=== PATIENT | female | born 1975 | race African-American/Black ===

== ENCOUNTER 2024-03-28 11:45 | Observation (INO) ==
--- NOTE | 2024-02-23 13:46 | PAT Medication Instructions ---
Medication Instructions Date of Service February 23, 2024 Home Medications B-complex with vitamin C 1 cap PO DAILY albuterol sulfate 90 mcg/actuation aerosol inhaler 2 puff inhalation QID PRN ammonium lactate 5 % topical cream 1 applic topical UD PRN aripiprazole 20 mg tablet 20 mg PO QAM budesonide-formoterol HFA 160 mcg-4.5 mcg/actuation aerosol inhaler 2 puff inhalation BID carbidopa 25 mg-levodopa 100 mg tablet 2 tab PO QID celecoxib 100 mg capsule (Celebrex) 100 mg PO BID PRN divalproex 500 mg tablet,delayed release (Depakote) 500 mg PO HS famotidine 10 mg tablet 10 mg PO QAM ferrous sulfate 325 mg (65 mg iron) tablet 325 mg PO QAM gabapentin 300 mg tablet 900 mg PO TID hydroxyzine HCl 25 mg tablet 25 mg PO TID levothyroxine 125 mcg tablet 125 mcg PO QAM methenamine hippurate 1 gram tablet 1 g PO BID montelukast 10 mg tablet (Singulair) 10 mg PO HS omeprazole 40 mg capsule,delayed release 40 mg PO QAM tizanidine 2 mg capsule 2 mg PO Q8H PRN topiramate 50 mg tablet (Topamax) 25 mg PO QAM tramadol 50 mg tablet 50 mg PO BID PRN vibegron 75 mg tablet (Gemtesa) 75 mg PO QAM ASK your surgeon for instructions celecoxib 100 mg capsule (Celebrex) 100 mg PO BID PRN STOP taking 24 hours before surgery ammonium lactate 5 % topical cream 1 applic topical UD PRN DO NOT take the morning of surgery B-complex with vitamin C 1 cap PO DAILY ferrous sulfate 325 mg (65 mg iron) tablet 325 mg PO QAM vibegron 75 mg tablet (Gemtesa) 75 mg PO QAM Take morning of surgery With a small sip of water, OTHERWISE NOTHING TO EAT OR DRINK AFTER MIDNIGHT: albuterol sulfate 90 mcg/actuation aerosol inhaler 2 puff inhalation QID PRN(use if needed; please bring with you to hospital day of surgery if possible) aripiprazole 20 mg tablet 20 mg PO QAM budesonide-formoterol HFA 160 mcg-4.5 mcg/actuation aerosol inhaler 2 puff inhalation BID carbidopa 25 mg-levodopa 100 mg tablet 2 tab PO QID famotidine 10 mg tablet 10 mg PO QAM gabapentin 300 mg tablet 900 mg PO TID hydroxyzine HCl 25 mg tablet 25 mg PO TID levothyroxine 125 mcg tablet 125 mcg PO QAM methenamine hippurate 1 gram tablet 1 g PO BID omeprazole 40 mg capsule,delayed release 40 mg PO QAM tizanidine 2 mg capsule 2 mg PO Q8H PRN(if needed) topiramate 50 mg tablet (Topamax) 25 mg PO QAM tramadol 50 mg tablet 50 mg PO BID PRN(if needed) Take evening before surgery albuterol sulfate 90 mcg/actuation aerosol inhaler 2 puff inhalation QID PRN(if needed) budesonide-formoterol HFA 160 mcg-4.5 mcg/actuation aerosol inhaler 2 puff inhalation BID carbidopa 25 mg-levodopa 100 mg tablet 2 tab PO QID divalproex 500 mg tablet,delayed release (Depakote) 500 mg PO HS gabapentin 300 mg tablet 900 mg PO TID hydroxyzine HCl 25 mg tablet 25 mg PO TID methenamine hippurate 1 gram tablet 1 g PO BID montelukast 10 mg tablet (Singulair) 10 mg PO HS tizanidine 2 mg capsule 2 mg PO Q8H PRN(if needed) tramadol 50 mg tablet 50 mg PO BID PRN(if needed) Other Notes If you have any questions please call us at [phone] or [phone] or [phone] or [phone]
--- NOTE | 2024-02-29 10:49 | Anesthesiology Consultation ---
Date of Service February 29, 2024 Assessment & Plan (1) Encounter for pre-operative examination: - Hx Gastroparesis: Pt reports had been NPO after 9pm for EGD and found to still have food in stomach, reports she normally goes NPO after 5 pm for surgeries due to this. Patient indicates that she will be NPO after 5pm night before for upcoming surgery given gastroparesis/past NPO experience. - Infectious disease screening: Per assessment on 02/29/24- No known recent infectious disease contacts or current infectious disease symptoms. - Outpatient joint assessment: Pt currently scheduled for inpatient pathway. If surgeon requests review for outpatient joint pathway, patient is not recommended candidate for outpatient joint program from anesthesia standpoint based on available information. - Patient acceptable risk for surgery pending surgeon-ordered PCP preop evaluation ([facility], appt 03/15). Chart Review Chart Review: Patient seen in Pre Admission Testing Teaching & Discussion Pre-Anesthesia Teaching/Discussion Notes: Instructed NPO after midnight before surgery,except medications with 15 cc of water. Medication instructions provided according to the PAT guidelines. History Surgery Operation Date: 03/28/24 07:15 Proposed Procedures p Right Reverse Total Shoulder Arthroplasty - Octavio Bianchi MD Height/Weight Height: 5 ft 5 in Weight: 103.1 kg Allergies Allergy/AdvReac Type Severity Reaction Status Date / Time No Known Allergies Allergy Verified 02/22/24 10:34 Medications Home Medications Medication Instructions Recorded Confirmed Last Taken B-complex with vitamin C 1 cap PO DAILY 02/22/24 02/22/24 Unknown albuterol sulfate 90 mcg/actuation 2 puff inhalation QID PRN asthma 02/22/24 02/22/24 Unknown aerosol inhaler ammonium lactate 5 % topical cream 1 applic topical UD PRN feet 02/22/24 02/22/24 Unknown budesonide-formoterol HFA 160 2 puff inhalation BID 02/22/24 02/22/24 Unknown mcg-4.5 mcg/actuation aerosol inhaler carbidopa 25 mg-levodopa 100 mg 2 tab PO QID 02/22/24 02/22/24 Unknown tablet celecoxib 100 mg capsule (Celebrex) 100 mg PO BID PRN Pain 02/22/24 02/22/24 Unknown divalproex 500 mg tablet,delayed 500 mg PO HS 02/22/24 02/22/24 Unknown release (Depakote) famotidine 10 mg tablet 10 mg PO QAM 02/22/24 02/22/24 Unknown ferrous sulfate 325 mg (65 mg 325 mg PO QAM 02/22/24 02/22/24 Unknown iron) tablet gabapentin 300 mg tablet 900 mg PO TID 02/22/24 02/22/24 Unknown hydroxyzine HCl 25 mg tablet 25 mg PO TID 02/22/24 02/22/24 Unknown levothyroxine 125 mcg tablet 125 mcg PO QAM 02/22/24 02/22/24 Unknown methenamine hippurate 1 gram tablet 1 g PO BID 02/22/24 02/22/24 Unknown montelukast 10 mg tablet 10 mg PO HS 02/22/24 02/22/24 Unknown (Singulair) omeprazole 40 mg capsule,delayed 40 mg PO QAM 02/22/24 02/22/24 Unknown release tizanidine 2 mg capsule 2 mg PO Q8H PRN muscle spasms 02/22/24 02/22/24 Unknown topiramate 50 mg tablet (Topamax) 25 mg PO QAM 02/22/24 02/22/24 Unknown tramadol 50 mg tablet 50 mg PO BID PRN Pain 02/22/24 02/22/24 Unknown vibegron 75 mg tablet (Gemtesa) 75 mg PO QAM 02/22/24 02/22/24 Unknown aripiprazole 10 mg tablet (Abilify) 10 mg PO DAILY 02/29/24 02/29/24 Unknown quetiapine 25 mg tablet (Seroquel) 25 mg PO HS 02/29/24 02/29/24 Unknown Past Medical History Medical History Arthritis Asthma Bipolar affective disorder Chronic pain Diffuse r/t arthritis and previous surgeries COPD (chronic obstructive pulmonary disease) Depression with anxiety Gastroparesis Pt reports had been NPO after 9pm for EGD and found to still have food in stomach, reports she normally goes NPO after 5 pm for surgeries due to this GERD (gastroesophageal reflux disease) History of deviated nasal septum History of seizure Single episode (2011) HLD (hyperlipidemia) HTN (hypertension) Hypothyroidism Parkinsons Seasonal allergies Urinary incontinence Exercise / Class Metabolic Activity III < 4 Walking/Shop/Light housework (one FS: No CP, mild SOB) Past Surgical History Surgical History History of arthroplasty of right shoulder x4 - rotator cuff repairs History of carpal tunnel release of both wrists Right x3, Left x3 History of decompression of both ulnar nerves History of esophagogastroduodenoscopy (EGD) History of nasal septoplasty History of total bilateral knee replacement Hx of colonoscopy Past Anesthesia History No Hx of Anesthesia Complications and No Family Hx of Anesthesia Complications History of PONV No Hx of PONV and No Hx of Motion Sickness Social History Smoking Status: Former smoker Smoking cigarettes per day: Quit cigs use 1.5 months ago, vapes daily (advised) Do You Dip or Chew Tobacco: No Hx Alcohol Use: No Hx Substance Use: No substance use type: does not use Review of Systems Patient denies chest pain, shortness of breath, fever, chills, cough, wheezing, palpitations. Physical Exam Vital Signs BP 112/76 P 78 TEMP 98.3 SP02 97%RA RESP 16 Physical Mildly decreased cervical extension range of motion. Full TMJ range of motion. TMD > 3.5 finger breaths Mallampati Score III Dentition: no lower teeth, several upper missing sides/molars Lungs: clear throughout to auscultation Cardiac: regular rate and rhythm, no murmurs noted Spine: normal Carotid arteries: negative bruit Extremities: no LE edema Lab Results Anesthesia Preop Results Results Anesthesia Widget: WBC 6.08 K/ul (4.8-10.8) 02/29/24 Hgb 12.5 g/dl (12.0-16.0) 02/29/24 Hct 37.8 % (37.0-47.0) 02/29/24 Plt 308 K/uL (130-400) 02/29/24 Na 141 mmol/L (136-145) 02/29/24 K 3.7 mmol/L (3.5-5.1) 02/29/24 Cl 108 mmol/L (98-107) H 02/29/24 CO2 26 mmol/L (21-32) 02/29/24 BUN 23 mg/dl (6-23) 02/29/24 Creat 0.69 mg/dl (0.6-1.2) 02/29/24 Glucose Level 100 mg/dl (70-99(Fasting)) H 02/29/24 PT 10.7 Seconds (9.0-12.0) 02/29/24 PTT 33 Seconds (21-31) H 02/29/24 INR 1.0 (0.9-1.1) 02/29/24 Urine Color Yellow 02/29/24 Urine Appearance Clear (Clear) 02/29/24 Urine pH 5.5 (4.5-7.5) 02/29/24 Urine Specific Slater 1.029 (1.000-1.030) 02/29/24 Urine Protein Trace (Negative) H 02/29/24 Urine Glucose (UA) Negative (Negative) 02/29/24 Urine Ketones Trace (Negative) H 02/29/24 Urine Blood Negative (Negative) 02/29/24 Urine Nitrite Negative (Negative) 02/29/24 Urine Bilirubin Negative (Negative) 02/29/24 Urine Urobilinogen Negative (Negative) 02/29/24 Urine Leukocyte Esterase Negative (Negative) 02/29/24 Urine WBC (Auto) 0-5 /hpf (0-5) 02/29/24 Urine RBC (Auto) >20 /hpf (0-2) H 02/29/24 Urine Hyaline Casts (Auto) 0-2 /lpf (0-2) 02/29/24 Urine Epithelial Cells (Auto) 6-10 /hpf (0-2) H 02/29/24 Urine Bacteria (Auto) None Seen (None Seen) 02/29/24 Blood Type O Positive 02/29/24 Antibody Screen NEGATIVE 02/29/24 Testing Electrocardiogram Date: 02/29/24 NSR at 70bpm. Rightward axis. Chest X-Ray Date: 02/29/24 FINDINGS: The lungs are clear. Cardiomediastinal silhouette is within normal limits. No acute osseous abnormalities. No pleural effusion or pneumothorax. IMPRESSION: No acute cardiopulmonary findings.
[~2024-03-28 11:45] MED LIST: BUPIVACAINE 0.5 % 5 MG/1 ML PF 10ML VIAL ONE; DEXAMETHASONE SOD INJ 4 MG/ML VIAL ONE; GLYCOPYRROLATE 0.2 MG/ML VIAL ONE; LIDOCAINE 2% 2 ML VIAL/AMP(20MG/ML) INFIL ONE; MIDAZOLAM HCL 1 MG/ML 2ML VIAL ONE; ONDANSETRON INJ 2 MG/ML 2 ML VIAL ONE; PROPOFOL IV EMULSION 10 MG/ML 20 ML VIAL IV ONE; ROCURONIUM BROMIDE 10 MG/ML 5 ML VIAL IV ONE; fentaNYL citrate PF 100 MCG/2 ML VIAL ONE
--- NOTE | 2024-03-28 12:12 | History & Physical Report ---
Date of Service March 28, 2024 Assessment & Plan (1) Rotator cuff tear arthropathy of right shoulder: Plan: [place] stage IV rotator cuff arthropathy failed rotator cuff repair right shoulder. Patient had adverse reaction to Celestone injection and had physical therapy without improvement. Patient cannot reach arm overhead with essentially pseudoparalysis. Patient's had 4 surgeries on her shoulder at this point in time and she lives a sedentary lifestyle so despite her age best option is reverse shoulder replacement right shoulder. (2) History of failed repair of rotator cuff: History of Present Illness Chief Complaint: Chronic right shoulder pain Primary Care Provider: NO PCP 49-year-old female with chronic right shoulder pain multiple right shoulder surgeries failed rotator cuff repair now with rotator cuff arthropathy. Patient denies headaches, sweats, fevers, chills, double vision, blurred vision, cough, sore throat, dysphagia, chest pain, sob at rest, wheezing, n/v/d/c, urinary symptoms. ROS positive for COPD, asthma, sleep apnea, bipolar disorder, numbness of the hands, Parkinson's, shortness of breath with activity, arthritis spine multiple areas, acid reflux. Allergies Allergy/AdvReac Type Severity Reaction Status Date / Time No Known Allergies Allergy Verified 03/08/24 15:05 Home Medications Medication Instructions Recorded Confirmed Type B-complex with vitamin C 1 cap PO DAILY 02/22/24 02/22/24 History albuterol sulfate 90 mcg/actuation 2 puff inhalation QID PRN asthma 02/22/24 02/22/24 History aerosol inhaler ammonium lactate 5 % topical cream 1 applic topical UD PRN feet 02/22/24 02/22/24 History budesonide-formoterol HFA 160 2 puff inhalation BID 02/22/24 02/22/24 History mcg-4.5 mcg/actuation aerosol inhaler carbidopa 25 mg-levodopa 100 mg 2 tab PO QID 02/22/24 02/22/24 History tablet celecoxib 100 mg capsule (Celebrex) 100 mg PO BID PRN Pain 02/22/24 02/22/24 History divalproex 500 mg tablet,delayed 500 mg PO HS 02/22/24 02/22/24 History release (Depakote) famotidine 10 mg tablet 10 mg PO QAM 02/22/24 02/22/24 History ferrous sulfate 325 mg (65 mg 325 mg PO QAM 02/22/24 02/22/24 History iron) tablet gabapentin 300 mg tablet 900 mg PO TID 02/22/24 02/22/24 History hydroxyzine HCl 25 mg tablet 25 mg PO TID 02/22/24 02/22/24 History levothyroxine 125 mcg tablet 125 mcg PO QAM 02/22/24 02/22/24 History methenamine hippurate 1 gram tablet 1 g PO BID 02/22/24 02/22/24 History montelukast 10 mg tablet 10 mg PO HS 02/22/24 02/22/24 History (Singulair) omeprazole 40 mg capsule,delayed 40 mg PO QAM 02/22/24 02/22/24 History release tizanidine 2 mg capsule 2 mg PO Q8H PRN muscle spasms 02/22/24 02/22/24 History topiramate 50 mg tablet (Topamax) 25 mg PO QAM 02/22/24 02/22/24 History tramadol 50 mg tablet 50 mg PO BID PRN Pain 02/22/24 02/22/24 History vibegron 75 mg tablet (Gemtesa) 75 mg PO QAM 02/22/24 02/22/24 History aripiprazole 10 mg tablet (Abilify) 10 mg PO DAILY 02/29/24 02/29/24 History quetiapine 25 mg tablet (Seroquel) 25 mg PO HS 02/29/24 02/29/24 History Past Med/Surg History Problem List (Updated 03/28/24 @ 12:10 by Octavio Bianchi MD) History of failed repair of rotator cuff Rotator cuff tear arthropathy of right shoulder Lumbar radicular pain Chronic low back pain Encounter for pre-operative examination Medical History DERICK (obstructive sleep apnea) Per PCP records Gastroparesis Pt reports had been NPO after 9pm for EGD and found to still have food in stomach, reports she normally goes NPO after 5 pm for surgeries due to this Bipolar affective disorder Depression with anxiety Chronic pain Diffuse r/t arthritis and previous surgeries Seasonal allergies Urinary incontinence History of seizure Single episode (2011) GERD (gastroesophageal reflux disease) HTN (hypertension) HLD (hyperlipidemia) Arthritis Parkinsons COPD (chronic obstructive pulmonary disease) Asthma History of deviated nasal septum Hypothyroidism Surgical History History of esophagogastroduodenoscopy (EGD) Hx of colonoscopy History of arthroplasty of right shoulder x4 - rotator cuff repairs History of total bilateral knee replacement History of decompression of both ulnar nerves History of carpal tunnel release of both wrists Right x3, Left x3 History of nasal septoplasty Social History Smoking Status: Former smoker Tobacco Type: E-cigarettes / Vaping Cigarettes Per Day: Quit cigs use 1.5 months ago, vapes daily (advised); Second Hand Exposure: No; Do You Dip or Chew Tobacco: No; Tobacco Cessation Education Requested by Patient: No Hx Alcohol Use: No Hx Substance Use: No Preferred Language: Stateless Communication Ability: Effective Medical Office Secretary Required: No Beliefs That Will Affect Care: None Current Living Situation: Other Current Living Situation Comment: lives with friends Other Information That Helps Us Care for You: No Feels Safe at Home: Yes Safety Concerns: Feels Safe At This Time Assistive Devices: Cane, Denture - Upper, Denture - Lower and Glasses Review of Systems All systems reviewed & are unremarkable except as noted in HPI & below Physical Exam Constitutional: WD/WN, vitals as above Respiratory: normal respiratory effort; no respiratory distress Cardiovascular: Rate/Rhythm: regular rate and regular rhythm Musculoskeletal: Right shoulder exam demonstrates abnormal rhythm anterior saber and arthroscopic scars with anterior and lateral subacromial tenderness with positive Patricia and Neer impingement signs with active and passive painful range of motion. Active flexion 80 degrees with passive flexion 170 degrees active abduction 80 degrees passive abduction 90 degrees. 4+/5 external rotation strength 4-/5 abduction strength normal internal rotation strength. Distal circulation sensorimotor exam intact. Skin: no rashes, warm and dry Neurologic: normal touch/pain/proprioception Psychiatric: A+Ox3, euthymic affect Results & Data Diagnostic Findings [place] stage IV rotator cuff arthropathy radiographically right shoulder.
--- NOTE | 2024-03-28 12:30 | History & Physical Bridge Note ---
Date of Service March 28, 2024 History & Physical Bridge Note I have examined the patient, reviewed the History & Physical and in the interval since the performance of the History & Physical I have noted the following changes of clinical significance: no changes noted
[2024-03-28] MEDS: LACTATED RINGER'S 1,000 ML IV SCH (12:44)
[2024-03-28] MEDS: CeleBREX 200 MG CAP PO SCH ×2 (12:45→21:40)
[2024-03-28] MEDS: FAMOTIDINE 20 MG TAB PO SCH (12:45)
[2024-03-28] MEDS: dexAMETHasone**PF** 10 MG/ML VIAL IV SCH (12:45)
[2024-03-28] MEDS: METOCLOPRAMIDE HCL 10 MG TABLET PO SCH (12:45)
[2024-03-28] MEDS: ACETAMINOPHEN 500 MG TAB PO SCH ×2 (12:45→20:28)
[2024-03-28] MEDS: GABAPENTIN 900 MG DOSE PO SCH (12:46)
[2024-03-28] MEDS ORDERED: LABETALOL HCL IV 5 MG/ML 20ML IV PRN (12:54)
[2024-03-28] MEDS ORDERED: FLUMAZENIL 0.1 MG/1 ML 10 ML VIAL IV PRN (12:54)
[2024-03-28] MEDS ORDERED: PROMETHAZINE HCL 6.25 MG in SODIUM CHLORIDE 0.9% 50 ML IV PRN (12:54)
[2024-03-28] MEDS ORDERED: ePHEDrine sulfate 50 MG/ML AMP IV PRN (12:54)
[2024-03-28] MEDS ORDERED: ONDANSETRON INJ 2 MG/ML 2 ML VIAL IV PRN ×2 (12:54→18:16)
[2024-03-28] MEDS ORDERED: fentaNYL citrate PF 100 MCG/2 ML VIAL IV PRN (12:54)
[2024-03-28] MEDS ORDERED: HYDROmorphone INJ 1 MG/ML SYRINGE IV PRN (12:54)
[2024-03-28] MEDS ORDERED: ATROPINE SULFATE 0.1 MG/ML 10ML SYR IV PRN (12:54)
[2024-03-28] MEDS ORDERED: NALOXONE HCL 0.4 MG/1 ML VIAL/CARP IV PRN ×2 (12:54→18:16)
[2024-03-28] MEDS: LR 60ML/HR IV SCH (12:55)
[2024-03-28] MEDS: TRANEXAMIC ACID 1,000 MG **IV Pre-op IV SCH (14:05)
[2024-03-28] MEDS: ceFAZolin 2000MG 2,000 MG/15 ML SYR IV SCH ×2 (14:21→23:37)
[2024-03-28] MEDS: TRANEXAMIC ACID 1,000 MG **IV Intra-op IV SCH (16:39)
[2024-03-28] MEDS ORDERED: fentaNYL citrate PF 100 MCG/2 ML VIAL ONE (16:50)
[2024-03-28] MEDS ORDERED: SUGAMMADEX SODIUM 200 MG/2 ML VIAL IV ONE (16:51)
--- NOTE | 2024-03-28 17:12 | Operative Report ---
Post Operative Report Pre & Post Diagnosis Operation Date: 03/28/24 13:30 Pre-Op Diagnosis: Right Shoulder Rotator Cuff Arthropathy, failed rotator cuff repairs Post-Op Diagnosis: Right Shoulder Rotator Cuff Arthropathy, failed rotator cuff repairs with retained suture anchors and suture material. I identified the patient and participated in the time-out.: Yes Procedure Operation Date: 03/28/24 13:30 Actual Procedures p Right Reverse Total Shoulder Arthroplasty(Right), biceps tenodesis, excisional debridement multiple suture anchors and suture material and rotator cuff tissue and biceps tendon tissue- Octavio Bianchi MD Surgeon Octavio Bianchi MD Deportation Officer Oscar MARQUEZ Estimated Blood Loss 300 Findings Consistent with Post-Op Diagnosis Specimens Humeral head Drains 2 Hemovac Anesthesia Type General Regional Complications none Disposition Disposition: Recovery Room Indications 49-year-old female with [place] stage IV rotator cuff arthropathy status post 4 prior shoulder surgeries with failed rotator cuff repair. [id number] glenohumeral joint Description of Procedure The patient was taken to the operating room and anesthetized under regional block and general anesthetic. The patient was positioned on the operating table in a 30 beach chair position with a towel roll under the medial border of the right scapula. The arm was draped free to be able to manipulate the shoulder as needed. The right upper extremity was prepped and draped in usual sterile fashion. Exam demonstrated good range of motion of the shoulder with crepitation. She has old widened scars saber scar and arthroscopic scars and obesity of the arm. An anterior deltopectoral approach was performed. A longitudinal incision was made in the deltopectoral interval. The skin was incised sharply. Subcutaneous flaps were elevated off the fascia. The cephalic vein was dissected out and retracted lateral with the deltoid. The clavipectoral fascia was divided at the lateral margin of the conjoined tendon and extended up to the CA ligament. The following findings were noted: At the level of the pectoralis tendon the biceps tendon was still intact and in the bicipital groove area there was tendinopathy of the biceps tendon but it was ruptured proximal to that. There was 1 suture and suture anchor in the bicipital groove area possibly from prior tenodesis or other procedure in that area. The subscapularis had partial tearing undersurface upper third with degenerative changes of subscapularis. There was some rotator interval supraspinatus tendon tissue most anterior attachment still some intact but then the remainder of the supraspinatus and anterior infraspinatus back to the teres minor was completely ruptured and retracted. There is retained suture material. No anchors were disrupted. There was suture material retracted medially with the rotator cuff tissue. There are spurs at the bicipital groove there are spurs of the lesser tuberosity inferior humeral head and greater tuberosity areas. There was moderate scarred bursitis over the rotator cuff tissue.. The upper centimeter of the pectoralis was released for inferior exposure. A self-retaining retractor was placed. In the area where the tendon looked the biceps tendon good at the level of the pectoralis tendon was tenodesed to the pectoralis tendon with #2 FiberWire. The proximal biceps was resected. The suture and suture material in the bicipital groove was resected and bicipital spurs were resected. The subscapular muscle fibers were split longitudinally at the level of the circumflex vessels. The circumflex vessels were identified and tied off with silk ties and divided laterally. A Kitner elevator was used to free up the inferior fibers of the subscapularis off of the capsule. The axillary nerve was identified with a tug test and protected with a blunt Benji retractor between the nerve and the capsule. The subscapularis tendon was then taken down off of the lesser tuberosity subperiosteally, a Vicryl traction suture was placed and a subperiosteal dissection was performed along the neck of the humerus as the arm was gradually externally rotated exposing the humeral head. The humeral head findings demonstrated areas of grade 4 arthritic change on the humeral head with articulating with the glenoid posterior superiorly. There were inferior humeral osteophytes from anterior to posterior.. retractors were readjusted and the inferior osteophytes were all resected using an artist chisel. A Molina elevator was used to assist in releasing the capsule of the neck of the humerus. The capsule was divided with Cerda scissors down to the glenoid released off the anterior glenoid and the rotator interval was released to meet the capsular release and a 360 release of the subscapularis was accomplished. A Fukuda retractor was placed into the joint retracting the humeral head posterior. Glenoid findings demonstrated grade 4 eburnated bone posterior superior glenoid with some relative wear of the posterior superior glenoid. There is still cartilage anterior and inferiorly. There was degenerative tearing the labrum and synovitis throughout the JARVIS labral area and underlying the rotator cuff tissue.. The labrum and inflamed synovial tissue was excised. An anterior-inferior and posterior inferior capsular release were performed with electrocautery and a Molina elevator on bone with the axillary nerve protected inferiorly by the retractor. Attention was then taken to the humeral preparation. The cutting guide was placed into the humeral head. It was positioned at 20 of retroversion. Oscillating saw was used to resect the humeral head giving the cut above the level of the posterior rotator cuff insertion site. This exposed multiple anchors in the humeral head which were removed with a rongeur as well as associated multiple sutures that were attached to the anchors. All visible anchors were removed. The humerus was then prepared for the stem. I for start with a canal finding broach . I used the ascend flex stem from [employer]. The sizing broaches were used followed by trial broaches up to a size 1B long which had the appropriate fit and fill. We templated a 2 but bone was very hard in the metaphyseal area and the size 1 was appropriate press-fit. The appropriate sized cut protector was placed. The humerus was then retracted posterior to the glenoid. The glenoid was sized for a 25 baseplate. The guide for the baseplate was positioned in a 10 inferior tilt and the central drill hole was made. The reamer for the 25 baseplate was used. The central drill was widened for the peg. The hydroxyapatite coated aequalis standard post 25 mm baseplate was impacted into position. The base plate was transfixed with superior and inferior locking screws and anterior and posterior compression screws with stable fixation. The fan reamer was used for the 36 millimeter glenoid sphere. After irrigation the 36 mm centered glenoid sphere was impacted onto the baseplate and the security screw was tightened. Attention was taken back to the humerus. The cut protector was removed and the +0 high offset humeral tray trial was assembled to the trial stem rotated appropriately to get bony coverage and then screwed in position. A trial reduction was performed. A +6/36 trial insert demonstrated good stability and no shuck. The trials were removed. 3 drill holes are made into the harder bone in the bicipital groove area and 3 #5 FiberWire sutures were placed transosseously. The canal was irrigated pulsatile lavage with saline. The final component was assembled. The final component was ascend Flex 1B Long stem assemble 2+ or high offset tray with a +6/36 reversed polyethylene insert. This was then impacted into the humerus with a tight press-fit. It was reduced to the glenoid sphere. Stability was verified. Subscapularis was repaired with the #5 FiberWire sutures using Luis Manuel-Rakesh suture technique. The pectoralis was repaired with #2 FiberWire [id number] sutures reinforcing the biceps tendon tenodesis. The arm was taken through a range of motion which demonstrated 150 degrees forward flexion 100 degrees abduction 80 degrees external rotation and internal rotation. The implant was stable through the range of motion tested. The wound was copiously irrigated. 2 Hemovac drains were placed. The deltopectoral interval was closed with [id number] #1 Vicryl sutures. The subcutaneous tissues were closed with 2-0 Vicryl sutures. The skin was closed with surgical hanna. It was noted that she had some generalized oozing of the tissues throughout the procedure and had more than typical bleeding throughout the procedure. Sterile dressings were applied and a shoulder immobilizer. Oscar MARQUEZ my physician speech language assistant acted as congressional assistant throughout the procedure .He performed functions including patient positioning, arm pos itioning, prepping and draping, soft tissue retraction, instrument management, suture management and performed the subcutaneous and skin closure and will participate in the postoperative care of the patient. I attest to the content of the Intraoperative Record and any orders documented therein. Any exceptions are noted below.
--- NOTE | 2024-03-28 17:58 | Anesthesiology Progress Note ---
Date of Service March 28, 2024 Anesthesia Post Procedure Vital Signs Vital Signs: Temp Pulse Resp BP BP Pulse Ox O2 Del Method 03/28/24 17:45 36.5 C 94 H 18 105/80 97 Oxymask 03/28/24 17:35 106 H 16 108/78 95 Oxymask 03/28/24 17:25 108 H 17 117/96 95 Oxymask 03/28/24 17:17 36.0 C L 90 16 140/70 98 Oxymask 03/28/24 12:32 36.9 C 70 20 116/85 97 Room Air O2 Flow Rate 03/28/24 17:45 2 03/28/24 17:35 4 03/28/24 17:25 6 03/28/24 17:17 10 03/28/24 12:32 Pain Intensity Right Shoulder: Pain Intensity: 7 Transfer of Care Handoff Completed per policy Notes Mental Status: alert / awake / arousable Patient Amnestic to Procedure: Yes Nausea / Vomiting: adequately controlled Pain: adequately controlled Airway Patency, RR, SpO2: stable & adequate BP & HR: stable & adequate Hydration State: stable & adequate Anesthetic Complications: no major complications apparent
--- NOTE | 2024-03-28 18:10 | XRay Report ---
Clinical history: Postoperative examination 2 views of the right shoulder are submitted for review. Findings: No fracture is seen. There is a right glenohumeral arthroplasty in expected position. There is no definite sign of infection or loosening. No other osseous abnormality is identified. Surgical drains are present as well as surgical skin hanna. There is right lung base atelectasis Impression: 1. New right shoulder replacement with surgical drains in place 2. Right lung base atelectasis Electronically signed by Drake Skelton 03-28-2024 6:10 PM
[2024-03-28] MEDS ORDERED: METOCLOPRAMIDE HCL INJ 5 MG/ML 2 ML VIAL IV PRN (18:16)
[2024-03-28] MEDS ORDERED: MAGNESIUM HYDROXIDE SUSP 30 ML UDC PO PRN (18:16)
[2024-03-28] MEDS ORDERED: ALBUTEROL HFA 8 GM INHALER INH PRN (18:16)
[2024-03-28] MEDS ORDERED: bisacodyL 10 MG SUPP PR PRN (18:16)
[2024-03-28] MEDS ORDERED: KETOROLAC TROMETHAMINE 15 MG/ML VIAL IV PRN (18:16)
[2024-03-28] MEDS ORDERED: tiZANidine HCL 4 MG TABLET PO PRN (18:16)
[2024-03-28] MEDS ORDERED: HYDROmorphone INJ 0.5 MG/0.5 ML SYR IV PRN (18:16)
[2024-03-28] MEDS ORDERED: diphenhydrAMINE Capsule 25 MG CAP PO PRN (18:16)
[2024-03-28] MEDS ORDERED: ALUMINUM/MAGNESIUM SUSP 30 ML UDC PO PRN (18:16)
[2024-03-28] MEDS: CARBIDOPA/LEVODOPA 25/100MG TAB PO SCH (18:41)
[2024-03-28] MEDS ORDERED: AMMONIUM LACTATE 12% LOTION 225 GM BTL EXT PRN ×2 (18:46→18:47)
--- OUTSIDE RECORDS SUMMARY | 2024-03-28 19:25 | External Medical Summary | Summary of Care ---
Author Name Unknown Organization [facility] Address [address] [place] [address] Phone [phone] Care Team Providers Care Center Mgr Name Role Phone Unavailable Primary Care Provider Unavailabl e Reason for Visit * Reason Comments eRx-Medication Refill Encounter Details Date Type Department Care Team ([facility] Contact Info) Description 03/20/2024 Refill Family [facility] [address] [place] [address] José Luis Lofton, DO [address] [place], [place] [id number] Environmental allergies; Recurrent UTI Allergies Active Allergy Reactions Criticality Noted Date Comments Lactose 10/25/2017 Other reaction(s): GI Intolerance Other reaction(s): GI UPSET Wound Dressing Adhesive Itching 12/20/2022 rash documented as of this encounter (statuses as of 03/22/2024) Medications Vitamin C 500 MG Oral Tablet (Ascorbic Acid) Take 1 Tablet by mouth in the morning and 1 Tablet before bedtime. 180 Tablet 3 03/15/20 23 Active Levothyroxine Sodium 112 MCG Oral Tablet (Levoxyl)Indicatio ns:Acquired hypothyroidism Take 1 Tablet by mouth in the morning. 90 Tablet 3 03/15/20 23 Active Fluticasone Propionate 50 MCG/ACT Nasal Suspension (Flonase)Indicatio ns:Allergic rhinitis, unspecified seasonality, unspecified trigger Administer 2 Sprays into each nostril in the morning. 16 g 5 03/17/20 23 Active Loratadine 10 MG Oral Tablet (Claritin)Indicati ons:Allergic rhinitis, unspecified seasonality, unspecified trigger Take 1 Tablet by mouth in the morning. 90 Tablet 1 03/17/20 23 Active Spironolactone 25 MG Oral Tablet (Aldactone) Take 1 Tablet by mouth in the morning. 90 Tablet 3 03/22/19 24 Active Diapers & SuppliesIndication s:Urinary incontinence, unspecified type Please dispense 5 adult diapers per day for patient. 150 Each 11 04/07/19 24 Active Ferrous Sulfate 325 (65 Fe) MG Oral Tablet (Feosol) Take 1 Tablet by mouth daily with breakfast. 90 Tablet 3 05/09/19 24 Active Montelukast Sodium 10 MG Oral Tablet (Singulair)Indicat ions:Environmental allergies Take 1 Tablet by mouth at bedtime. 90 Tablet 3 05/13/19 24 Active Budesonide-Formote rol Fumarate 160-4.5 MCG/ACT Inhalation Aerosol (Symbicort)Indicat ions:Chronic obstructive pulmonary disease, unspecified COPD type (HCC),Moderate persistent asthma, uncomplicated Inhale 2 Puffs by mouth in the morning and 2 Puffs before bedtime. 10.2 g 11 07/13/19 24 Active SUMAtriptan Succinate 100 MG Oral TabletIndications: Migraine without aura and without status migrainosus, not intractable take 1 tablet by mouth ONCE if needed for migraines every 3 TO 4 DAYS 10 Tablet 5 07/18/19 24 Active Diclofenac Sodium 1 % External Gel (Voltaren)Indicati ons:Acute pain of right shoulder Apply 2 g topically to affected area 4 times a day as needed for Pain. Apply to right shoulder 100 g 1 07/26/19 24 Active Ammonium Lactate 12 % External Lotion (Lac-Hydrin) APPLY TOPICALLY DAILY ON BOTH FEET DAILY 07/08/19 24 Active Ibuprofen 800 MG Oral Tablet (Motrin) Take 1 Tablet by mouth every 8 hours as needed. 07/21/19 24 Active Lidocaine-Prilocai ne 2.5-2.5 % External Cream (Emla) Apply to areas of pain, on left foot , every 4 hours as needed 07/24/19 24 Active Naloxone HCl 4 MG/0.1ML Nasal Liquid (Narcan Nasal) Administer 1 spray into 1 nostril for suspected opioid overdose. Seek immediate medical attention. [email or web address] 1 Each 3 07/28/19 24 Active Omeprazole 40 MG Oral Capsule Delayed Release (PriLOSEC) TAKE 1 CAPSULE BY MOUTH EVERY MORNING 90 Capsule 1 08/01/19 24 Active Pregabalin 100 MG Oral Capsule (Lyrica)Indication s:Spinal stenosis of lumbar region without neurogenic claudication Take 1 Capsule by mouth in the morning and 1 Capsule at noon and 1 Capsule before bedtime. 90 Capsule 2 08/02/19 24 Active oxyCODONE HCl 5 MG Oral Tablet (Oxy IR) Take 1 Tablet by mouth every 4 hours as needed for Pain, Severe. 15 Tablet 08/01/19 24 Active Additional Information Patient not taking.Reported on 08/26/2023 Albuterol Sulfate HFA 108 (90 Base) MCG/ACT Inhalation Aerosol Solution INHALE 2 PUFFS BY MOUTH EVERY 4 HOURS NEEDED FOR PAIN, CHEST OR SHORTNESS OF BREATH. 18 g 08/03/19 24 Active Cyclobenzaprine HCl 5 MG Oral Tablet (Flexeril)Indicati ons:Cervicalgia,Pa in in joint of left shoulder TAKE 1 TABLET BY MOUTH THREE TIMES A DAY NEEDED FOR MUSCLE SPASM 30 Tablet 08/16/19 24 Active Clotrimazole-Betam ethasone 1-0.05 % External Cream (Lotrisone) Apply topically to affected area 2 times a day. 45 g 08/13/19 24 Active Methenamine Hippurate 1 GM Oral Tablet (Hiprex)Indication s:Recurrent UTI TAKE 1 TABLET BY MOUTH IN THE MORNING AND BEFORE BEDTIME 180 Tablet 08/29/19 24 Active Topiramate 50 MG Oral Tablet (topAMAX)Indicatio ns:Migraine without aura and without status migrainosus, not intractable TAKE 1 TABLET BY MOUTH EVERY DAY IN THE MORNING 90 Tablet 08/29/19 24 Active Meloxicam 15 MG Oral Tablet (Mobic) Take 1 Tablet by mouth in the morning. 30 Tablet 1 08/31/19 24 Active Mometasone Furoate 50 MCG/ACT Nasal SuspensionIndicati ons:Chronic rhinitis,Chronic sinusitis, unspecified location Administer 2 Sprays into each nostril in the morning. 17 g 09/06/19 24 Active Gemtesa 75 MG Oral Tablet (Vibegron) Take 1 Tablet by mouth in the morning. 90 Tablet 1 09/16/19 24 Active Carbidopa-Levodopa 25-100 MG Oral Tablet (Sinemet)Indicatio ns:Drug-induced Parkinson's disease (HCC) Take 2 tablets four times a day 540 Tablet 3 09/29/19 24 Active hydrOXYzine HCl 25 MG Oral Tablet Take 1 Tablet by mouth 3 times a day as needed for Anxiety. 90 Tablet 2 02/02/20 24 Active Divalproex Sodium ER 500 MG Oral Tablet Extended Release 24 Hour (Depakote ER)Indications:His tory of migraine 2 tabs at bed time., for bipolar 180 Tablet 02/02/20 24 Active Venlafaxine HCl ER 150 MG Oral Capsule Extended Release 24 Hour (Effexor XR) Take 1 Capsule by mouth in the morning. In the morning.. 90 Capsule 02/24/20 24 Active ARIPiprazole 10 MG Oral Tablet (Abilify) Take 1 Tablet by mouth in the morning. 90 Tablet 02/24/20 24 025 Active QUEtiapine Fumarate 25 MG Oral Tablet (SEROquel) Take 1 Tablet by mouth at bedtime. 90 Tablet 02/24/20 24 025 Active documented as of this encounter (statuses as of 03/22/2024) Active Problems Problem Noted Date Diagnosed Date Food insecurity 08/01/2023 Overview: Per [email or web address] Protocol Primary insomnia 07/13/2023 COPD (chronic obstructive pulmonary disease) Peripheral sensory neuropathy 07/05/2023 Social phobia 07/05/2023 Parkinson's disease with fluctuating manifestati ons 01/31/2023 DERICK (obstructive sleep apnea) 01/31/2023 Chronic foot pain, left 01/31/2023 Osteoarthritis of spine with radiculopathy, lumbosacral region 01/31/2023 Spinal stenosis of lumbar re gion without neurogenic claudication 01/31/2023 Chronic pain syndrome 01/31/2023 Bipolar 1 disorder 01/31/2023 KENA (generalized anxiety disorder) 01/31/2023 Tobacco use disorder 01/31/2023 PTSD (post-traumatic stress disorder) 01/31/2023 Gastroesophageal reflux disease without esophagi tis 01/31/2023 OAB (overactive bladder) 01/31/2023 Acquired hypothyroidism 01/31/2023 Atherosclerosis of artery of both lower extremit ies 04/22/2022 Chronic constipation with overflow 04/22/2022 Essential hypertension 04/22/2022 Gastroparesis 04/22/2022 Herniated lumbar intervertebral disc 04/22/2022 History of bilateral knee replacement 04/22/2022 Migraine 04/22/2022 Moderate persistent asthma 04/22/2022 Nondependent cannabis abuse 04/22/2022 Peripheral venous insufficiency 04/22/2022 Recurrent major depressive episodes, moderate Spinal enthesopathy 04/22/2022 Cigarette smoker 04/22/2022 Acquired pes planus of left foot 04/22/2022 Artificial knee joint present 04/22/2022 Biceps tendinitis of right shoulder 04/22/2022 Nonulcer dyspepsia 04/22/2022 Osteoarthritis of right acromioclavicular joint 04/22/2022 Recurrent urinary tract infection 04/22/2022 Intention tremor 02/18/2022 Cubital tunnel syndrome on right 02/18/2022 Cubital tunnel syndrome on left 02/18/2022 Lumbosacral spondylosis without myelopathy 08/25 Cervicalgia 05/11/2019 Lumbago 05/11/2019 H/O total knee replacement, right 12/19/2014 Cervical spondylosis without myelopathy 12/28/19 09 Opioid dependence 12/27/2008 Mental disorder 08/01/2007 Overview (07/05/2023): Other psychiatric disorder Intestinal disaccharidase deficiency Neurosis documented as of this encounter (statuses as of 03/22/2024) Resolved Problems Problem Noted Date Diagnosed Date Resolved Date Anxiety 07/05/2023 07/22/2023 Overview (07/22/2023): A more specified Dx is on the PL Rheumatoid arthritis 07/05/2023 04/ 024 Overview (07/05/2023): Primarily affecting the neck, low back and hands June IMO Regulatory Update Asthma 07/05/2023 07/22/2023 Overview (07/22/2023): A more specified Dx on PL Morbid obesity 07/05/2023 07/13/2023 Snoring 07/05/2023 08/01/2023 Migraine without aura and wi thout status migrainosus, not intractable 01/31/2023 08/13/2023 Abnormal weight gain 04/22/2022 024 Acute rhinosinusitis 04/22/2022 024 Bacterial infection of digestive tract 04/22/2022 08/01/2023 Cigarette nicotine dependenc e without complication 04/22/2022 07/22/2023 Overview (07/22/2023): duplicate Dizziness 04/22/2022 08/01/2023 Dyspnea 04/22/2022 08/01/2023 Esophageal dysphagia 04/22/2022 024 Hyperlipidemia 04/22/2022 07/13/2023 Paresthesia 04/22/2022 08/01/2023 Recurrent falls 04/22/2022 08/01/2023 documented as of this encounter (statuses as of 03/22/2024) Immunizations Name Administration Dates Next Due Pneumococcal Conjugate Vacci ne, 20-valent ([id number]) 03/22/2023 Seasonal Influenza, PF, 6 M & above, IM , (FluLaval or Fluzone) 12/20/2022 TDAP (age 10 and older)(Boostrix) 2023,04/13/2020,10/20/2019,2012 documented as of this encounter Social History Tobacco Use Types Packs/Day Years Used Date Smoking Tobacco: Every Day Cigarettes Smokeless Tobacco: Never Alcohol Use Standard Drinks/Week Comments Not Currently 0 (1 standard drink = 0.6 oz pur e alcohol) PHQ-2 Answer Date Recorded PHQ Adult Total Score 2 03/06/2024 Hunger Vital Sign Answer Date Recorded Within the past 12 months, y ou worried that your food would run out before you got the money to buy more. Often true Within the past 12 months, t he food you bought just didn't last and you didn't have money to get more. Sometimes true 08/2023 Childcare Answer Date Recorded Do you feel overwhelmed with taking care of a child, family member or friend? No 02/24/2024 Does your family need help f inding childcare? (Household - for ages 0-17 years) Not on file 02/24/2024 Clothing Answer Date Recorded Have you been unable to get clothing when it was really needed? No 02/24/2024 Is your family able to get c lothes or diapers when needed? (Household - for ages 0-17 years) Not on file 02/24/2024 Personal Safety Answer Date Recorded Do you feel unsafe or have concerns for your saf ety? No 02/24/2024 Do you have concerns for you r family's safety? (Household - for ages 0-17 years) Not on file 02/24/2024 Utilities Answer Date Recorded Do you have trouble paying y our heating, water, or electric bill? No 02/24/2024 Is your family able to pay t he heat, water, or electric bill? (Household - for ages 0-17 years) Not on file 02/24/2024 Does your family have access to good internet? (Household - for ages 0-17 years) Not on file 02/24/2024 Employment Status Answer Date Recorded Are you unemployed or without regular income? Ye s 02/24/2024 Does the household have a re gular source of income? (Household - for ages 0-17 years) Not on file 02/24/2024 Social Connections Answer Date Recorded How often do you feel lonely or isolated from those around you? Sometimes 02/24/2024 Financial Resource Strain Answer Date R ecorded Do you have any trouble payi ng for your medications, or do you think you might in the future? No 02/24/2024 Does your family have troubl e paying for medicine? (Household - for ages 0-17 years) Not on file 02/24/2024 Transportation Needs Answer Date Record ed READ ONLY Do you have troubl e getting a ride to medical visits or work? Never True 02/24/2024 Does your family have a hard time getting a ride to doctors visits? (Household - for ages 0-17 years) Not on file 02/24/2024 Has lack of transportation k ept you from medical appointments, meetings, work, or from getting things needed for daily living? Check all that apply. No 02/24/2024 Do you (or your family) have trouble finding or paying for a ride (transportation)? (Household - for ages 0-17 years) Not on file 02/24/2024 Housing Stability Answer Date Recorded Do you currently live in a s helter or have no steady place to sleep at night? No 02/24/2024 READ ONLY Do you think you a re at risk of becoming homeless? No 02/24/2024 Does your family worry about paying for your home or becoming homeless? (Household - for ages 0-17 years) Not on file 1 04/26/2023 Are you homeless or worried that you might be in the future? No 02/24/2024 Are you (or your family) kezia eless or worried that you might be in the future? (Household - for ages 0-17 years) Not on file Food Insecurity Answer Date Recorded Do you need food for this week? Yes 02/24/2024 Are you able to get enough f ood for your family? (Household - for ages 0-17 years) Not on file 02/24/2024 Does your family need food t his week? (Household - for ages 0-17 years) Not on file 02/24/2024 Do you always have enough fo od for your family? (Household - for ages 0-17 years) Not on file 02/24/2024 Comments No Sex and Gender Information Value Date Recorded Sex Assigned at Female 01/12/2023 8:08 AM EDT Legal Sex Female 8:53 AM EDT Gender Identity Female 01/12/2023 8:08 AM EDT Sexual Orientation Straight 01/12/2023 8: 08 AM EDT Occupation Industry Job Start Date Job End Date Disabled/ Hasn't worked since 2007 Not on file Not on file Not on file documented as of this encounter Miscellaneous Notes * Telephone Encounter - Flavio Prado, [facility] - 03/22/2024 10:35 AM EST Refused Prescriptions: Disp Refills Montelukast Sodium 10 MG Oral Tablet (Sing*90 Tab*1 Sig: TAKE 1TABLET BY MOUTH EVERYDAY AT BEDTIMERefused By: FLAVIO PRADO for Refusal: Managed byanother physician Methenamine Hippurate 1 GM Oral Tablet (Hi*180 Ta*1 Sig: TAKE 1 TABLET BY MOUTH IN THE MORNING AND BEFORE BEDTIMERefused By: FLAVIO PRADO for Refusal: Managed byanother physician documented in this encounter Plan of Treatment Upcoming Encounters Date Type Department Care Team (Late st Contact Info) Description 03/30/2024 1:00 PM EST Telemedicine Psychology Miguel Angel Ansari [address] [place] [address] Lyla Hendrix LCSW [address] [place] [address] 04/10/2024 1:30 PM EST Office Visit Otol[facility]ology [facility] [address] [facility] [place] [address] Karo Lai PA-C [address] [facility] [place] [address] 04/18/2024 10:30 AM EST Telemedicine Psychiatry, [place] [address] [place] [address] Aissatou Jeter MD [address] [facility] [place] [address] 07/09/2024 1:15 PM EDT Office Visit Gynecology/Obstetics [address] [phone] Ludmila Roberts PA-C [address] [place] [address] Health Maintenance Due Date Last Done Comments DISCUSS TOBACCO CESSATION (REFER TO SMARTSET #6556) 1973 Alpha-1 Antitrypsin 1991 Hepatitis B Vaccine (1 of 3 - 19+ 3-dose series) 02/06/1992 Cologuard 2018 Fecal Occult Blood Test 2018 Sigmoidoscopy 2018 Zoster Vaccines (1 of 2) 2023 *COPD SEVERITY VERIFIED BY PFT 07/08/2023 *SPIROMETRY ONCE FOR ASTHMA-ADULT 07/08/2023 COVID-19 Vaccine ( season) 2023 Influenza Vaccine (FLU shot) (#1) 2023 12/20/2022, 12/20/2022, 11/19/2016, Additional history exists Colonoscopy 07/07/2024 07/08/2023, 07/08/2023 Colorectal Cancer Screening 07/07/2024 O2 ASSESSMENT COMPLETED IN PAST YEAR FOR COPD 07/07/2024 07/08/2023 Mammogram 07/27/2024 07/28/2023, 05/20, 12/09/2018, Additional history exists TSH 08/11/2024 08/12/2023, 03/22/2023 GFR 12/04/2024 12/05/2023, 07/20, 03/22/2023, Additional history exists Depression Monitoring 03/06/2025 03/06/2024 , 02/29/2024, 02/14/2024, Additional history exists Pap Smear 01/05/2026 01/05/2023 Albumin/Creatinine Ratio 07/26/2026 07/27/2023 Diabetes Screening 08/11/2026 08/12/2023, 0 03/22/2023, 03/22/2023 Cervical Cancer Screening 01/06/2028 HPV/Co-Test 01/06/2028 01/05/2023 DTap/Tdap Vaccines (5 - Td or Tdap) 04/04/2033 04/04/2023, 04/13/2020, 10/20/2019, Additional history exists Pneumococcal Vaccine: 50+ Years Completed 03/22/2023 RETIRED - COLONOSCOPY-ANNUAL AGES 18-100 Discontinued 07/08/2023, 07/08/2023 HPV (Gardasil) Vaccine Aged Out No lo nger eligible based on patient's age to complete this topic MENINGOCOCCAL (MENACTRA/MENVEO) Aged Out No longer eligible based on patient's age to complete this topic documented as of this encounter Medical Devices Not on filedocumented as of this encounter Visit Diagnoses Diagnosis Environmental allergies Other allergy, other than to medicinal agents Recurrent UTI Urinary tract infection, site not specified documented in this encounter
--- OUTSIDE RECORDS SUMMARY | 2024-03-28 19:25 | External Medical Summary | Summary of Care ---
Author Name Unknown Organization [facility] Address [address] [place] [address] Phone [phone] Care Team Providers Care [employer] Supervisor Name Role Phone Unavailable Primary Care Provider Unavailabl e Reason for Visit * Reason Onset Date Comments Medication Refill 03/22/2024 Encounter Details Date Type Department Care Team ([facility] st Contact Info) Description 03/22/[address] [facility] [address] [facility] [place] [address] José Luis Snyder, DO [address] [place] [address] Allergies Active Allergy Reactions Criticality Noted Date Comments Lactose 10/25/2017 Other reaction(s): GI Intolerance Other reaction(s): GI UPSET Wound Dressing Adhesive Itching 12/20/2022 rash documented as of this encounter (statuses as of 03/23/2024) Medications Vitamin C 500 MG Oral Tablet [...] opioid overdose. Seek immediate medical attention. [email or web address] 1 Each 3 07/28/19 24 Active Omeprazole [...] as of this encounter (statuses as of 03/23/2024) Active Problems Problem Noted Date Diagnosed Date Food insecurity 08/01/2023 Overview: Per [facility] Protocol Primary insomnia 07/13/2023 COPD (chronic [...] as of this encounter (statuses as of 03/23/2024) Resolved Problems Problem Noted Date Diagnosed Date [...] as of this encounter (statuses as of 03/23/2024) Immunizations Name Administration Dates Next Due Pneumococcal Conjugate Vacci ne, 20-valent ([id number]) 03/22/2023 Seasonal Influenza, PF, 6 M & [...] encounter Miscellaneous Notes * Telephone Encounter - José Luis Snyder DO - 03/23/2024 6:35 AM EST Refused Prescriptions: Disp Refills Gemtesa 75 MG Oral Tablet (Vibegron) 90 Tab*1 Sig: Take 1 Tablet by mouth in the morning. Refused By: JOSÉ LUIS SNYDER Reason for Refusal: Refill Not Appropriate * Telephone Encounter - Debbie Castellanos, [facility] - 03/22/2024 4:18 PM EST Did you pend patient's preferred pharmacy and medication before forwarding?yes Pharmacy: [id number] [address] Pending Prescriptions: Disp Refills Gemtesa 75 MG Oral Tablet (Vibegron) 90 Tab*1 Sig: Take 1 Tablet by mouth in the morning. Last Visit: 08/26/2023 (in office), 08/13/2023 (telemedicine) Next Visit: Visit date not found If no future appointments scheduled, and last appointment is greater than a year ago, please schedule patient for a follow-up appointment Last date the medication was ordered: 09/16/23 Is this request for a controlled substance?No Urine Drug Screen: Results for orders placed or performed in visit on 01/31/23 TOXICOLOGY, URINE SCREEN W/ CONFIRMATION Result Value Amphetamines Screen, U Positive (A) Benzodiazepines Screen, U Negative Cannabinoids Screen, U Positive (A) Cocaine Metabolite Screen, U Negative Fentanyl Screen, U Positive (A) Hydrocodone Screen, U Negative Methadone Metabolite Screen, U Negative Morphine/Codeine Screen, U Negative Oxycodone Screen, U Negative Narrative Cutoff Concentrations: Drug Level Amphetamines 500 ng/mL Benzodiazepines 100 ng/mL Cannabinoids 50 ng/mL Cocaine Metabolite 150 ng/mL Fentanyl 1 ng/mL Hydrocodone / Hydromorphone 300 ng/mL Methadone Metabolite 100 ng/mL Morphine / Codeine 300 ng/mL Oxycodone / Oxymorphone 100 ng/mL Screening results are presumptive and can only be used for medical purposes. Positive screening results are reflexed to confirmatory testing. Patient Phone Numbers Labs: Lab Results Component Value Date/Time CREAT 0.6 08/12/2023 08:30 AM CREAT 0.63 02/25/2022 01:16 PM POTASSIUM 3.7 08/12/2023 08:30 AM POTASSIUM 4.1 07/26/2023 08:57 AM TSH 1.00 08/12/2023 08:30 AM LDL 105 08/12/2023 08:30 AM ALT 22 08/12/2023 08:30 AM HGBA1C 5.5 03/22/2023 01:07 PM documented in this encounter Plan of Treatment Upcoming Encounters Date Type Department Care Team (Late st Contact Info) Description 04/04/2024 3:00 PM EST Telemedicine Psychology [place] [address] [place] [address] Lyla Hendrix LCSW [address] [place] [address] 04/10/2024 1:30 PM EST Office Visit Otolaryngology [facility] [address] [place] [address] Karo Lai PA-C [address] [place] [address] 04/18/2024 10:30 AM EST Telemedicine Psychiatry, [place] [address] [place] [phone] Aissatou Jeter MD [address] [place] [address] 07/09/2024 1:15 PM EDT Office Visit Gynecology/Obstetics [place] [address] [facility] [place] [phone] Ludmila Roberts PAAlenaC [address] [place] [address] Health Maintenance Due Date Last Done Comments DISCUSS TOBACCO CESSATION (REFER TO SMARTSET #5306) 1973 Alpha-1 Antitrypsin 1991 Hepatitis B Vaccine (1 of 3 - 19+ 3-dose series) 02/06/1992 Cologuard 2018 Fecal Occult Blood Test 2018 Sigmoidoscopy 2018 Zoster Vaccines (1 of 2) 2023 *COPD SEVERITY VERIFIED BY PFT 07/08/2023 *SPIROMETRY ONCE FOR ASTHMA-ADULT 07/08/2023 COVID-19 Vaccine (2023- season) 2023 Influenza Vaccine (FLU shot) (#1) [...]
--- OUTSIDE RECORDS SUMMARY | 2024-03-28 19:26 | External Medical Summary | Summary of Care ---
Author Name Unknown Organization [facility] Address [address] [place] [address] Phone [phone] Care Team Providers Care Toll Lineman Name Role Phone Unavailable Primary Care Provider Unavailabl e Reason for Visit * Reason Comments eRx-Medication Refill Encounter Details Date Type Department Care Team ([facility] Contact Info) Description 03/14/2024 Refill [facility] [address] [place] [address] José Luis Lofton, DO [address], [place] [id number] Migraine without aura and without status migrainosus, not intractable Allergies Active Allergy Reactions Criticality Noted Date Comments Lactose 10/25/2017 Other reaction(s): GI Intolerance Other reaction(s): GI UPSET Wound Dressing Adhesive Itching 12/20/2022 rash documented as of this encounter (statuses as of 03/16/2024) Medications Vitamin C 500 MG Oral Tablet [...] suspected opioid overdose. Seek immediate medical attention. [email or web address] 1 Each 3 07/28/19 24 Active Omeprazole [...] THE MORNING AND BEFORE BEDTIME 180 Tablet 1 08/29/19 24 Active Topiramate 50 MG Oral [...] each nostril in the morning. 17 g 5 09/06/19 24 Active Gemtesa 75 MG Oral [...] as of this encounter (statuses as of 03/16/2024) Active Problems Problem Noted Date Diagnosed Date Food insecurity 08/01/2023 Overview: Per [facility] Protocol Primary insomnia 07/13/2023 COPD (chronic [...] as of this encounter (statuses as of 03/16/2024) Resolved Problems Problem Noted Date Diagnosed Date Resolved Date Anxiety 07/05/2023 07/22/2023 Overview (07/22/2023): A more specified Dx is on the PL Rheumatoid arthritis 07/05/2023 024 Overview (07/05/2023): Primarily affecting the neck, [...] as of this encounter (statuses as of 03/16/2024) Immunizations Name Administration Dates Next Due Pneumococcal Conjugate Vacci ne, 20-valent ([id number]) 03/22/2023 Seasonal Influenza, PF, 6 M & [...] encounter Miscellaneous Notes * Telephone Encounter - Senia Pedraza, [facility] - 03/16/2024 8:47 AM ESTRefused Prescriptions: Disp Refills Topiramate 50 MG Oral Tablet (topAMAX) 90 Tab*1 Sig: TAKE 1 TABLET BY MOUTH EVERY DAY IN THE MORNINGRefused By: SENIA PEDRAZA for Refusal: Managed by another physician documented in this encounter Plan of Treatment Upcoming Encounters Date Type Department Care Team (Late st Contact Info) Description 03/30/2024 1:00 PM EST Telemedicine Psychology [facility] Ansari [address] [place] [address] Lyla Hendrix LCSW [address] [place] [address] 04/12/2024 1:30 PM EST Office Visit Otolaryngology [facility] [address] [address] Karo Lai PA-C [address] [place] [address] 04/18/2024 10:30 AM EST Telemedicine Psychiatry, [address] [place] [phone] Aissatou Jeter MD [address] [place] [address] 07/09/2024 1:15 PM EDT Office Visit Gynecology/Obstetics [place] [address] [place] [phone] Ludmila Roberts PA-C [address] [place] [address] Health Maintenance Due Date Last Done Comments DISCUSS TOBACCO CESSATION (REFER TO SMARTSET #[id number]) 1973 Alpha-1 Antitrypsin 1991 Hepatitis B Vaccine [...] as of this encounter Visit Diagnoses Diagnosis Migraine without aura and without status migrainosus, not intractable Migraine without aura, without mention of intractable migraine without mention of status migrainosus documented in this encounter
--- NOTE | 2024-03-28 19:44 | Consultation ---
Date of Consultation March 28, 2024 Assessment & Plan (1) Rotator cuff tear arthropathy of right shoulder: 49yo female s/p right reverse total shoulder arthroplasty performed by Dr. Bianchi today. Surgery well tolerated with no immediate complications identified. -Pain control, anti-emetics and bowel regimen per primary team -Plan for tentative discharge tomorrow (2) DERICK (obstructive sleep apnea): Chronic. Patient reports using CPAP at home qHS -CPAP qHS while inpatient (3) History of seizure: Chronic -Continue Divalproex -Continue Topamax (4) GERD (gastroesophageal reflux disease): Chronic. Stable -Protonix 40mg po daily -Continue Pepcid (5) Hypothyroidism: Chronic. No TSH on record. -Check TSH with AM labs -Continue Synthroid 125mcg po daily (6) COPD (chronic obstructive pulmonary disease): Patient denies cough, SOB or wheeze. No home O2 -Continue Albuterol PRN -Symbicort (7) Parkinsons: Chronic -Continue Carbidopa/Levodopa 2tabs po QID History of Present Illness Reason for Consultation: medical management Attending Physician: Octavio Bianchi MD History of Present Illness Lucrecia Acharya is a pleasant 49yo female with history of HTN, HLP, BiPolar disorder, Parkinson's disease and Seizure disorder presenting for right shoulder replacement. Patient with multiple surgeries on the right shoulder in the past. She had Celestone injections and PT with no improvement. Patient went to the OR today with Dr. Bianchi and had a right reverse total shoulder arthroplasty. Surgery was well tolerated with no immediate complications identified. Performed under general and local anesthesia. EBL 300mL. Hemovac drain in place. Patient seen at bedside in 321-1. She is sitting up comfortably, NAD. Reports pain is well controlled. No nausea or vomiting. She was able to eat without difficulty. Allergies Allergy/AdvReac Type Severity Reaction Status Date / Time No Known Allergies Allergy Verified 03/28/24 12:23 Home Medications Medication Instructions Recorded Confirmed Type B-complex with vitamin C 1 cap PO DAILY 02/22/24 03/28/24 History albuterol sulfate 90 mcg/actuation 2 puff inhalation QID PRN asthma 02/22/24 02/22/24 History aerosol inhaler ammonium lactate 5 % topical cream 1 applic topical UD PRN feet 02/22/24 02/22/24 History budesonide-formoterol HFA 160 2 puff inhalation BID 02/22/24 02/22/24 History mcg-4.5 mcg/actuation aerosol inhaler (Symbicort) carbidopa 25 mg-levodopa 100 mg 2 tab PO QID 02/22/24 03/28/24 History tablet celecoxib 100 mg capsule (Celebrex) 100 mg PO BID PRN Pain 02/22/24 03/28/24 History divalproex 500 mg tablet,delayed 500 mg PO HS 02/22/24 03/28/24 History release (Depakote) famotidine 10 mg tablet (Pepcid AC) 10 mg PO QAM 02/22/24 03/28/24 History ferrous sulfate 325 mg (65 mg 325 mg PO QAM 02/22/24 03/28/24 History iron) tablet gabapentin 300 mg tablet 900 mg PO TID 02/22/24 03/28/24 History hydroxyzine HCl 25 mg tablet 25 mg PO TID 02/22/24 03/28/24 History levothyroxine 125 mcg tablet 125 mcg PO QAM 02/22/24 03/28/24 History methenamine hippurate 1 gram tablet 1 g PO BID 02/22/24 03/28/24 History montelukast 10 mg tablet 10 mg PO HS 02/22/24 03/28/24 History (Singulair) omeprazole 40 mg capsule,delayed 40 mg PO QAM 02/22/24 03/28/24 History release tizanidine 2 mg capsule (Zanaflex) 2 mg PO Q8H PRN muscle spasms 02/22/24 03/28/24 History topiramate 50 mg tablet (Topamax) 25 mg PO QAM 02/22/24 03/28/24 History tramadol 50 mg tablet 50 mg PO BID PRN Pain 02/22/24 03/28/24 History vibegron 75 mg tablet (Gemtesa) 75 mg PO QAM 02/22/24 03/28/24 History quetiapine 25 mg tablet (Seroquel) 25 mg PO HS 02/29/24 03/28/24 History acetaminophen 500 mg tablet 1,000 mg (2 x 500 mg) PO Q8H #90 03/28/24 Rx (Tylenol Extra Strength) tabs aspirin 81 mg tablet,delayed 81 mg PO BID #60 tabs 03/28/24 Rx release cefadroxil 500 mg capsule 500 mg PO Q12H #28 caps 03/28/24 Rx oxycodone 5 mg tablet 5 mg PO Q4H PRN pain #20 tabs 03/28/24 Rx Patient History Medical History (Updated 03/28/24 @ 20:09 by Debra Berrios DO) DERICK (obstructive sleep apnea) Per PCP records Gastroparesis Pt reports had been NPO after 9pm for EGD and found to still have food in stomach, reports she normally goes NPO after 5 pm for surgeries due to this Bipolar affective disorder Depression with anxiety Chronic pain Diffuse r/t arthritis and previous surgeries Urinary incontinence History of seizure Single episode (2011) GERD (gastroesophageal reflux disease) HTN (hypertension) HLD (hyperlipidemia) Arthritis Parkinsons COPD (chronic obstructive pulmonary disease) Asthma Hypothyroidism Surgical History History of esophagogastroduodenoscopy (EGD) Hx of colonoscopy History of arthroplasty of right shoulder x4 - rotator cuff repairs History of total bilateral knee replacement History of decompression of both ulnar nerves History of carpal tunnel release of both wrists Right x3, Left x3 History of nasal septoplasty Social History Smoking Status: Former smoker Tobacco Type: E-cigarettes / Vaping Cigarettes Per Day: Quit cigs use 1.5 months ago, vapes daily (advised); Second Hand Exposure: No; Do You Dip or Chew Tobacco: No; Tobacco Cessation Education Requested by Patient: No Hx Alcohol Use: No Hx Substance Use: No Preferred Language: Japanese Communication Ability: Effective Textile Artist Required: No Beliefs That Will Affect Care: None Current Living Situation: Other Current Living Situation Comment: lives with friends Other Information That Helps Us Care for You: No Feels Safe at Home: Yes Safety Concerns: Feels Safe At This Time Assistive Devices: Cane, Denture - Upper, Denture - Lower and Glasses Review of Systems Review of Systems: All systems reviewed & are unremarkable except as noted in HPI & below Physical Exam Physical Exam: General: patient resting comfortably, NAD, non-toxic in appearance, AA&O x 4 Skin: warm, dry, intact, no rashes or lesions HEENT: NC/AT, PERRL, EOMI, anicteric sclera, conjunctiva without injection, external ear normal to inspection and nontender, nares patent, moist mucus membranes, dentition intact, no oropharyngeal lesions, neck supple, trachea midline, no LAD, no thyromegaly, no JVD Heart: +S1/S2, regular, no m/r/g Lungs: equal air entry bilaterally, no rales/rhonchi/wheezes Abd: +BS, soft, NT/ND, no masses/organomegaly/ascites Ext: warm, 2+ pulses in UE/LE bilaterally, no clubbing/cyanosis or edema, SCDs in place Neuro: nonfocal, patient AA&O x 4, speech intact, no facial droop, moving all extremities on command with equal strength 5/5 RUE in immobilizer - ice in place, hemovac drain with some bloody output Results & Data Vital Signs (Past 12 Hours) Vital Signs Temp Pulse Pulse Resp BP BP Pulse Ox 03/28/24 19:23 36.4 C L 97 H 16 96/64 L 96 03/28/24 18:43 36.8 C 90 17 100/68 96 03/28/24 18:15 37 C 90 18 111/75 95 03/28/24 18:00 93 H 18 109/77 93 03/28/24 17:45 36.5 C 94 H 18 105/80 97 03/28/24 17:35 106 H 16 108/78 95 03/28/24 17:25 108 H 17 117/96 95 03/28/24 17:17 36.0 C L 90 16 140/70 98 03/28/24 12:32 36.9 C 70 20 116/85 97 O2 Del Method O2 Flow Rate 03/28/24 19:23 Room Air 03/28/24 18:43 Nasal Cannula 2 03/28/24 18:15 Nasal Cannula 2 03/28/24 18:00 Oxymask 2 03/28/24 17:45 Oxymask 2 03/28/24 17:35 Oxymask 4 03/28/24 17:25 Oxymask 6 03/28/24 17:17 Oxymask 10 03/28/24 12:32 Room Air Laboratory Results Impressions Shoulder X-Ray 03/28/24 17:18 Clinical history: Postoperative examination 2 views of the right shoulder are submitted for review. Findings: No fracture is seen. There is a right glenohumeral arthroplasty in expected position. There is no definite sign of infection or loosening. No other osseous abnormality is identified. Surgical drains are present as well as surgical skin hanna. There is right lung base atelectasis Impression: 1. New right shoulder replacement with surgical drains in place 2. Right lung base atelectasis Electronically signed by Drake Skelton 03-28-2024 6:10 PM PG Care Time/CCT Total # of Minutes Spent Total Time Spent with Patient: Total time spent is greater than 50% in coordination of care (as documented) at patient's floor/unit and/or counseling patient: Coding Level of Care Code 98802 IN/OBS CONSULT LVL 3,45M Diagnoses Rotator cuff tear arthropathy of right shoulder M75.101; M12.811 DERICK (obstructive sleep apnea) G47.33 History of seizure Z87.898 GERD (gastroesophageal reflux disease) K21.9 Hypothyroidism E03.9 COPD (chronic obstructive pulmonary disease) J44.9 Parkinsons G20.A1
[2024-03-28] MEDS ORDERED: SODIUM CHLORIDE 0.9% 500 ML IV SCH (20:00)
[2024-03-28] MEDS: SODIUM CHLORIDE 0.9% 1,000 ML IV SCH ×2 (20:20→21:45)
[2024-03-28] MEDS: DOCUSATE SODIUM 100 MG CAP PO SCH (20:28)
[2024-03-28] MEDS: SENNA 8.6 MG TAB PO SCH (20:28)
[2024-03-28] MEDS: ASPIRIN 81 MG ECTAB PO SCH (20:29)
[2024-03-28] MEDS: MONTELUKAST SODIUM 10 MG TABLET PO SCH (21:01)
[2024-03-28] MEDS: GABAPENTIN 300 MG CAP PO SCH (21:01)
[2024-03-28] MEDS: QUEtiapine FUMARATE 25 MG TABLET PO SCH (21:01)
[2024-03-28] MEDS: hydrOXYzine HCl 25 MG TAB PO SCH (21:01)
[2024-03-28] MEDS: METHENAMINE HIPPURATE 1 GM TAB PO SCH (21:01)
[2024-03-28] MEDS: DIVALPROEX DELAY RELEASE 500 MG TAB PO SCH (21:40)
[2024-03-28] MEDS: FLUTICASONE/VILANTEROL 200/25MCG 14 PUFFS/INHALER INH SCH (21:42)
[2024-03-28] MEDS: TRANEXAMIC ACID / 0.7% NACL 1,000 MG/100 ML BAG IV SCH (23:43)
[2024-03-29] MEDS: oxyCODONE HCL IR 5 MG TAB (IMMEDIATE RELEASE) PO PRN (05:43)
[2024-03-29] MEDS: LEVOTHYROXINE SODIUM 125 MCG TABLET PO SCH (05:55)
[2024-03-29 06:11] LABS: Basophils # (auto) 0.02 K/uL (0.00-0.20); Basophils % (auto) 0.2 %; Hemoglobin 10.4 g/dl (12.0-16.0); Immature Granulocytes # (auto) 0.04 K/uL (0.01-0.20); Immature Granulocytes % (auto) 0.4 %; Lymphocytes # (auto) 1.78 K/uL (1.20-3.40); Mean Corpuscular Hemoglobin 26.4 pg (25.0-34.0); Mean Corpuscular Hgb Conc 33.5 g/dL (32.0-36.0); Mean Corpuscular Volume 78.7 fL (80.0-100.0); Mean Platelet Volume 10.8 fL (9.4-12.4); Monocytes # (auto) 0.73 K/uL (0.11-0.59); Monocytes % (auto) 6.6 %; Neutrophils # (auto) 8.56 K/uL (1.40-6.50); Neutrophils % (auto) 76.8 %; Platelet Count 241 K/uL (130-400); RDW Coefficient of Variation 13.9 % (11.5-14.5); RDW Standard Deviation 39.8 fL (36.4-46.3); Red Blood Count 3.94 M/uL (4.20-5.40); White Blood Count 11.13 K/ul (4.8-10.8)
[2024-03-29 06:22] LABS: BUN Creatinine Ratio 30.4 (10-20); Calcium 8.7 mg/dl (8.6-10.3); Creatinine Clr Calc Pharmacy 140.3 ml/min; Potassium 3.9 mmol/L (3.5-5.1)
[2024-03-29 06:37] LABS: Thyroid Stimulating Hormone 0.082 uIu/ml (0.300-4.500)
[2024-03-29 07:47] VITALS: BP 128/80; PULSE 79; RESP 18; TEMP 97.9; O2SAT 96
--- NOTE | 2024-03-29 07:57 | Orthopedic Progress Note ---
Date of Service March 29, 2024 Assessment & Plan (1) Rotator cuff tear arthropathy of right shoulder: Plan: [place] stage IV rotator cuff arthropathy failed rotator cuff repair right shoulder. Patient had adverse reaction to Celestone injection and had physical therapy without improvement. Patient cannot reach arm overhead with essentially pseudoparalysis. Patient's had 4 surgeries on her shoulder at this point in time and she lives a sedentary lifestyle so despite her age best option is reverse shoulder replacement right shoulder. Postop day 1 status post reverse shoulder replacement. Plan is to discharge home with home exercise program 2 weeks and follow-up in office in 2 weeks and then will schedule outpatient physical therapy at that time. (2) History of failed repair of rotator cuff: Admission and Anticipated Discharge Date Admission Date: March 28, 2024 Subjective No complaints. Review of Systems Review of Systems: Patient feels well. Physical Exam Musculoskeletal: Right shoulder dressing dry and intact. Motor or sensory function returned to hand on right. Circulation normal. Results & Data Vital Signs (Past 12 Hours) Vital Signs Temp Pulse Resp BP Pulse Ox O2 Del Method 03/29/24 07:47 36.6 C 79 18 128/80 96 Room Air 03/29/24 02:58 36.4 C L 75 16 138/84 94 Room Air 03/28/24 22:55 36.6 C 80 18 119/74 96 Room Air 03/28/24 21:46 37.2 C 81 16 113/74 96 Room Air 03/28/24 20:19 36.8 C 95 H 16 99/67 L 96 Room Air Diagnostic Findings X-rays demonstrate well aligned normally located reverse shoulder replacement
[2024-03-29] MEDS: FERROUS SULFATE 325 MG TAB PO SCH (08:10)
[2024-03-29] MEDS: PANTOprazole 40 MG TAB PO SCH (08:12)
[2024-03-29] MEDS: VIBEGRON 75 MG TAB PO SCH (08:12)
[2024-03-29] MEDS: MULTIVITAMIN TAB PO SCH (08:13)
[2024-03-29] MEDS: TOPIRAMATE 25 MG TAB PO SCH (08:14)
[2024-03-29] MEDS: VITAMIN B COMPLEX TAB PO SCH (08:15)
[2024-03-29] MEDS: FAMOTIDINE 10 MG TABLET PO SCH (08:16)
[2024-03-29] MEDS: dexAMETHasone 10 MG in SYRINGE 0 ML IV SCH (08:21)
== END 2024-03-29 13:26 | disposition home or self-care (01) ==
LOC: ASU 11:45 → 3E 11:45